=== PATIENT | male | born 1995 | race American Indian/Alaskan Native ===

== ENCOUNTER 2019-07-08 16:18 | Emergency (ER) | payer MEDICAID ==
[~2019-07-08] VITALS: Ht 180.3 cm; Wt 104.5 kg
[~2019-07-08 16:18] MED LIST: NO HOME MEDS
--- NOTE | 2019-07-08 16:29 | NUR ---
Dr Craigfs updated on patient's status.
--- NOTE | 2019-07-08 16:38 | NUR ---
Called poison control and spoke with Chi. Notified of 24 OTC benadryl capsules taken 2 hours prior. Chi recommended EKG, telemonitoring for 6-8 hours and to watch for QRS widening, and seizure precautions. Said to monitor for increased BP, increased HR, possible confusion, and decreased bowel sounds. Also recommended tox, aspirin, tylenol screen. Notified MD Morse of recommendations and notification of poison control.
[2019-07-08 16:57] LABS: BASOPHILS % (AUTO) 0.4 % (0-1); EOSINOPHILS # (AUTO) 0.1 X10'3 (0-0.9); EOSINOPHILS % (AUTO) 0.6 % (0-6); HEMATOCRIT 40.8 % (42.0-52.0); HEMOGLOBIN 13.9 g/dl (14.0-17.9); LYMPHOCYTES # (AUTO) 3.1 X10'3 (1.1-4.8); LYMPHOCYTES % (AUTO) 32.5 % (21-51); MEAN CORPUSCULAR HEMOGLOBIN 30.3 PG (27.0-31.0); MEAN CORPUSCULAR HGB CONC 34.2 g/dL (33.0-36.5); MEAN CORPUSCULAR VOLUME 88.8 FL (78-98); MEAN PLATELET VOLUME 7.4 FL (7.4-10.4); MONOCYTES # (AUTO) 0.7 X10'3 (0-0.9); NEUTROPHILS # (AUTO) 5.6 X10'3 (1.8-7.7); NEUTROPHILS % (AUTO) 59.5 % (42-75); PLATELET COUNT 257 X10'3 (140-440); RED BLOOD COUNT 4.59 X10'6 (4.70-6.10); RED CELL DISTRIBUTION WIDTH 13.4 % (11.5-14.5); WHITE BLOOD COUNT 9.4 X10'3 (4.5-11.0)
[2019-07-08] MEDS ORDERED: LIDOcaine 1% w/epiNEPHrine 1:200,000 30ml vial IM ONE (17:25)
[2019-07-08 17:29] LABS: ALANINE AMINOTRANSFERASE 64 U/L (12-78); ALBUMIN 4.4 G/DL (3.4-5.0); ALBUMIN/GLOBULIN RATIO 1.3 (1.1-1.5); ALKALINE PHOSPHATASE 52 IU/L (46-116); ANION GAP 11 (8-16); ASPARTATE AMINO TRANSFERASE 31 U/L (10-37); BILIRUBIN,TOTAL 0.4 MG/DL (0.1-1.0); BLOOD UREA NITROGEN 14 MG/DL (7-18); BUN/CREATININE RATIO 13.9 (5.4-32.0); CHLORIDE 109 MMOL/L (99-107); CREATININE 1.01 MG/DL (0.60-1.10); GLUCOSE 90 MG/DL (70-104); POTASSIUM 4.1 MMOL/L (3.5-5.1); SODIUM 145 MMOL/L (135-145); TOTAL CARBON DIOXIDE 24.9 MMOL/L (24-32); TOTAL PROTEIN 7.9 G/DL (6.4-8.2); eGFR 90 ML/MIN
[2019-07-08 17:31] LABS: URINE AMPHETAMINE SCREEN NEGATIVE (Neg); URINE BARBITUATE SCREEN NEGATIVE (Neg); URINE BENZODIAZEPINES SCREEN NEGATIVE (Neg); URINE CANNABINOID SCREEN POSITIVE (Neg); URINE COCAINE SCREEN NEGATIVE (Neg); URINE METHADONE SCREEN NEGATIVE (Neg); URINE OPIATE SCREEN NEGATIVE (Neg); URINE PHENCYCLIDINE SCREEN NEGATIVE (Neg)
[2019-07-08 17:36] LABS: ETHANOL < 0.010 GM/DL (0.0-0.010)
--- NOTE | 2019-07-08 18:51 | NUR ---
Cleaned suture site to L wrist with saline and gauze, applied non-adherent dressing, wrapped with gauze and rod wrap.
[2019-07-08] MEDS ORDERED: MULT-1085 PO (20:07)
--- NOTE | 2019-07-08 21:56 | NUR ---
Call from [facility] Poison control at this time. Update given, all questions and concerns addressed.
[2019-07-09 05:38] VITALS: BP 109/76
--- NOTE | 2019-07-09 07:45 | NUR ---
Called [facility] office and spoke with David whom verified pt packet had been received.
[2019-07-09] MEDS ORDERED: multivitamins, therapeutics tablet PO SCH (08:00)
--- NOTE | 2019-07-09 08:28 | NUR ---
Spoke with pt and received verbal conscent to speak his sister Radha whom called and inquired on pt status. Pts sister reports pt currently in unhealthy relationship and feels pts behaviors are "calling out for help". Sister reports pt had lost his mother August 2018 and 5 years prior lost his father. Sister is requesting pt hold for stablization and states that she or pts grandmother would be available for pt discharge. Pts sister left her phone number. Radha Rioc:
--- NOTE | 2019-07-09 09:10 | NUR ---
Pt being seen by [facility] resident surgeon.
== END 2019-07-09 10:35 | disposition home or self-care (01) ==
LOC: ER 16:19
DX: S51.812A Laceration without foreign body of left forearm, initial encounter (principal); T45.0X2A Poisoning by antiallergic and antiemetic drugs, intentional self-harm, initial encounter; F31.9 Bipolar disorder, unspecified; X83.8XXA Intentional self-harm by other specified means, initial encounter; Y93.89 Activity, other specified; Y92.89 Other specified places as the place of occurrence of the external cause; Y99.8 Other external cause status
CPT/HCPCS: 12002; 36415; 80053; 80305; 80320; 84443; 85025; 93005; 99284

== ENCOUNTER 2022-05-17 17:33 | Emergency (ER) | payer MEDICAID ==
[~2022-05-17] VITALS: Ht 180.3 cm; Wt 109.1 kg
[~2022-05-17 17:33] MED LIST changes: +MULT-1085 PO; -NO HOME MEDS
[2022-05-17 18:06] VITALS: BP 139/83
[2022-05-17] MEDS ORDERED: GABA-534 PO (18:13)
== END 2022-05-17 18:18 | disposition home or self-care (01) ==
LOC: ER 17:34
DX: Z02.2 Encounter for examination for admission to residential institution (principal); F10.20 Alcohol dependence, uncomplicated; F31.9 Bipolar disorder, unspecified; Z79.899 Other long term (current) drug therapy; Y90.9 Presence of alcohol in blood, level not specified
CPT/HCPCS: 99283

== ENCOUNTER 2022-07-05 14:37 | Emergency (ER) | payer MEDICAID ==
[~2022-07-05] VITALS: Ht 177.8 cm; Wt 113.6 kg
[~2022-07-05 14:37] MED LIST changes: +GABA-534 PO
[2022-07-05 16:06] LABS: BASOPHILS % (AUTO) 0.5 % (0-1); EOSINOPHILS # (AUTO) 0.1 X10'3 (0-0.9); EOSINOPHILS % (AUTO) 1.7 % (0-6); HEMATOCRIT 40.6 % (42.0-52.0); HEMOGLOBIN 14.1 g/dl (14.0-17.9); LYMPHOCYTES % (AUTO) 49.4 % (21-51); MEAN CORPUSCULAR HGB CONC 34.8 g/dL (33.0-36.5); MEAN CORPUSCULAR VOLUME 86.2 FL (78-98); MEAN PLATELET VOLUME 7.3 FL (7.4-10.4); MONOCYTES # (AUTO) 0.6 X10'3 (0-0.9); MONOCYTES % (AUTO) 7.4 % (2-12); NEUTROPHILS # (AUTO) 3.3 X10'3 (1.8-7.7); PLATELET COUNT 261 X10'3 (140-440); RED BLOOD COUNT 4.71 X10'6 (4.70-6.10); RED CELL DISTRIBUTION WIDTH 13.3 % (11.5-14.5)
[2022-07-05 16:25] LABS: ALANINE AMINOTRANSFERASE 84 U/L (12-78); ALBUMIN 4.4 G/DL (3.4-5.0); ALBUMIN/GLOBULIN RATIO 1.3 (1.1-1.5); ALKALINE PHOSPHATASE 74 IU/L (46-116); ANION GAP 9 (8-16); ASPARTATE AMINO TRANSFERASE 35 U/L (10-37); BILIRUBIN,TOTAL 0.2 MG/DL (0.1-1.0); BLOOD UREA NITROGEN 11 MG/DL (7-18); BUN/CREATININE RATIO 11.3 (5.4-32.0); CALCIUM 8.8 MG/DL (8.5-10.1); CHLORIDE 106 MMOL/L (99-107); CREATININE 0.97 MG/DL (0.60-1.10); GLUCOSE 98 MG/DL (70-104); POTASSIUM 3.7 MMOL/L (3.5-5.1); SODIUM 141 MMOL/L (135-145); TOTAL CARBON DIOXIDE 25.9 MMOL/L (24-32); TOTAL PROTEIN 7.7 G/DL (6.4-8.2); eGFR > 90 ML/MIN
[2022-07-05 16:30] LABS: ETHANOL < 0.010 GM/DL (0.0-0.010)
[2022-07-05 16:40] LABS: URINE AMPHETAMINE SCREEN NEGATIVE (Neg); URINE BARBITUATE SCREEN NEGATIVE (Neg); URINE BENZODIAZEPINES SCREEN NEGATIVE (Neg); URINE CANNABINOID SCREEN NEGATIVE (Neg); URINE COCAINE SCREEN NEGATIVE (Neg); URINE METHADONE SCREEN NEGATIVE (Neg); URINE OPIATE SCREEN NEGATIVE (Neg); URINE PHENCYCLIDINE SCREEN NEGATIVE (Neg)
--- NOTE | 2022-07-05 16:58 | NUR ---
pt was [facility] and voiced to the doctor that he was depressed and thoughts of suicide crossed his mind. no plan to hurt self or others.
[2022-07-05 17:05] LABS: CLARITY,URINE CLEAR (Clear); COLOR,URINE YELLOW (Yellow); GLUCOSE, URINE NEGATIVE (Neg); KETONES,URINE TRACE mg/dl (Neg); LEUKOCYTE ESTERASE ,URINE NEGATIVE (Neg); NITRITES, URINE NEGATIVE (Neg); OCCULT BLOOD,URINE TRACE-INTACT (Neg); PROTEIN,URINE NEGATIVE (Neg); UA COLLECTION TYPE URINAL; UROBILINOGEN,URINE 0.2 E.U/dL (0.2-1.0)
[2022-07-05 17:20] LABS: BACTERIA,URINE NONE SEEN /HPF (Neg); MUCUS STRANDS NONE SEEN /LPF (Neg); RBC,URINE 0-2 /HPF (0-2); SQUAMOUS EPITHELIAL CELL,UR FEW /LPF (FEW); WBC,URINE NONE SEEN /HPF (0-4)
--- NOTE | 2022-07-05 19:00 | NUR ---
The patient was moved to bed 26 in the ER overflow from the main ER. He is very cooperative. He does wear hearing aids and they are at the bedside. When asked why he was here he stated that while at the [facility] he had a "miscommunication" with the staff and he ended up here. He currently denies that he is suicidal. Reports a prior suicide attempt and hospitalization when he was a teen.
[2022-07-05] MEDS ORDERED: NO HOME MEDS (19:25)
--- NOTE | 2022-07-05 20:45 | NUR ---
The patient is resting on his bed and watching TV.
--- NOTE | 2022-07-05 21:59 | NUR ---
The patient is awake and watching TV.
--- NOTE | 2022-07-06 00:17 | NUR ---
The patient appears to be sleeping
--- NOTE | 2022-07-06 02:07 | NUR ---
The patient appears to be sleeping
--- NOTE | 2022-07-06 03:46 | NUR ---
The patient appears to be sleeping
[2022-07-06 06:08] VITALS: BP 116/66
--- NOTE | 2022-07-06 06:30 | NUR ---
Assumed care of patient that is sleeping
--- NOTE | 2022-07-06 08:22 | NUR ---
tech faxed packet to [facility]
--- NOTE | 2022-07-06 08:30 | NUR ---
Patient lying on his bed watching tv. No s/sx of distress.
--- NOTE | 2022-07-06 09:43 | NUR ---
Patient's here to visit. They are acting appropriately.
--- NOTE | 2022-07-06 11:30 | NUR ---
Patient is visiting with his . No s/sx of distress.
--- NOTE | 2022-07-06 13:30 | NUR ---
Patient continues to visit with his . No problems observed.
--- NOTE | 2022-07-06 16:49 | NUR ---
Patient's has returned, and they are quietly talking to each other.
[2022-07-06] MEDS ORDERED: traZODone 50mg tablet PO SCH (21:00)
== END 2022-07-06 17:23 | disposition home or self-care (01) ==
LOC: ER 14:37
DX: R45.851 Suicidal ideations (principal); Z20.822 Contact with and (suspected) exposure to COVID-19; F31.9 Bipolar disorder, unspecified
CPT/HCPCS: 36415; 80053; 80305; 80320; 81001; 84443; 85025; 87811; 99285

== ENCOUNTER 2022-08-24 08:41 | Emergency (ER) | payer MEDICAID ==
[~2022-08-24] VITALS: Ht 180.3 cm; Wt 113.6 kg
[~2022-08-24 08:41] MED LIST changes: -GABA-534 PO; -MULT-1085 PO; +NO HOME MEDS
[2022-08-24 08:49] VITALS: BP 137/74
[2022-08-24] MEDS ORDERED: dexamethasone sod phosphate 10mg/ml inj PO STA (10:29)
[2022-08-24] MEDS ORDERED: AMOX-117 PO (10:36)
== END 2022-08-24 11:41 | disposition home or self-care (01) ==
LOC: ER 08:41
DX: J06.9 Acute upper respiratory infection, unspecified (principal); Z20.822 Contact with and (suspected) exposure to COVID-19; F31.9 Bipolar disorder, unspecified
CPT/HCPCS: 87081; 87635; 87880; 99283; C9803; J1100